=== PATIENT | male | born 1945 | race Caucasian/White ===

== ENCOUNTER 2022-10-03 06:50 | Day surgery (SDC) | payer MEDICARE, OTHER ==
[~2022-10-03] VITALS: Ht 172.7 cm; Wt 86.4 kg
[~2022-10-03 06:50] MED LIST: FLOMAX0.4 MG PO; METAMUCIL660 GM PO; PRILOSEC OTC20 MG PO; TYLENOL EXTRA500 MG PO; VITAMIN C500 M1 PO
[2022-10-03] MEDS ORDERED: LEVOFLOXACIN500 MG PO (15:24)
[2022-10-03] MEDS ORDERED: OXYCODONE HCL5 MG PO (15:29)
[2022-10-03] MEDS ORDERED: FLOMAX0.4 MG PO (15:42)
--- NOTE | 2022-10-04 18:31 | OR ---
[facility] [address] [place], [place] [address] Signed DATE OF OPERATION: 10/03/2022 SURGEON: Ozzie Latham MD PREOPERATIVE DIAGNOSES: 1. Trilobar benign prostatic hyperplasia with active lower urinary tract symptoms. 2. Evidence of active bladder outlet obstruction on recent cystoscopy. POSTOPERATIVE DIAGNOSES: 1. Trilobar benign prostatic hyperplasia with active lower urinary tract symptoms. 2. Evidence of active bladder outlet obstruction on recent cystoscopy. PROCEDURES: 1. Diagnostic cystoscopy. 2. Urethral dilation from 16-Austrian to 32-Austrian using Je sounds. 3. Transurethral resection of the prostate. ANESTHESIA: General. ESTIMATED BLOOD LOSS: 25 mL. COMPLICATIONS: None. SPECIMENS: Fragments of resected prostate sent to pathology for evaluation. DRAINS: A 22-Austrian three-way Miles catheter, connected to continuous bladder irrigation. INDICATIONS FOR PROCEDURE: Mr. Amezcua is a very pleasant 77-year-old gentleman who presented to me initially for evaluation and management of symptoms of prostatism including weak force of stream and nocturia. He subsequently underwent a diagnostic cystoscopy, which revealed moderate to severe lateral lobe hypertrophy with a moderately sized intravesical median lobe. Also, noted was grade 2 bladder wall trabeculation, indicative of active bladder outlet obstruction. After discussing the risks and benefits of TURP including the risk of gross hematuria and that of stress urinary incontinence, the patient verbalized Electronically Signed By: OZZIE LATHAM MD 10/04/22 1831 PATIENT NAME: TITO AMEZCUA OPERATIVE REPORT DATE OF : 47 REPORT #: [id number] PHYSICIAN: OZZIE LATHAM MD PCP: LAZARO LARA MD REPORT IS CONFIDENTIAL AND NOT TO BE RELEASED WITHOUT AUTHORIZATION [facility] [address], [place] [address] Signed understanding of the risks of the procedure and has agreed to proceed. OPERATIVE FINDINGS: 1. On cystoscopy, there was no evidence of any suspicious masses, lesions, or stones. Bilateral ureteral orifices are in their normal anatomic location and effluxing clear urine. They were noted to be relatively far away from the bladder neck. 2. Prior to insertion of the cystoscope the patient's urethral meatus was dilated using [place] sounds from 16-Austrian to 34-Austrian without difficulty. 3. The patient's trilobar prostate was resected using a bipolar device with a 24-Austrian loop. The large median lobe was resected first, followed by the left and then the right lateral lobes of the prostate. The resection was performed down to the level of the verumontanum as to avoid any iatrogenic injury to the external sphincter. 4. At the end of the procedure, a 22-Austrian three-way Miles catheter was inserted into the patient's bladder and connected to continuous bladder irrigation. 5. Due to the shear size of the prostate, the total resection time was 3 hours. DESCRIPTION OF PROCEDURE: After informed consent was obtained, the patient was taken back to the operating room. He was transferred from the [facility] to the operating room table, where general anesthesia was induced. He was placed in the dorsal lithotomy position and his genitalia prepped and draped in a standard sterile fashion. Using a 30-degree lens on a 22.5-Austrian introducer, rigid cystoscope was inserted through his urethra and into his bladder under direct visualization. Panendoscopic views of bladder then obtained. Please see above findings. I then evaluated the prostatic urethra. I removed the scope and then dilated the patient's urethral meatus using [place] sounds from 16-Austrian to 32-Austrian. I was then able to easily pass the 26-Austrian sheath using a visual obturator into the patient's bladder. The visual obturator was then switched out for the resectoscope with a bipolar 24-Austrian loop. I evaluated the location of the bilateral ureteral orifices and again noted that they were not adjacent to the bladder neck. I then initially resected the moderately sized intravesical projecting median lobe. Median lobe resection went without any difficulty. I then focused on the left lateral lobe of the prostate. Both lateral lobes were significantly hypertrophied and were at least 2 to 2.5 cm in length from the bladder neck to the verumontanum. In total, the resection took approximately 3 hours due to the shear size of the prostate. As stated above, the left lateral lobe was resected, followed by the right lateral lobe of the prostate. The resection was performed without disk difficulty and most of the time resection was performed with a 24-Austrian bipolar loop. Near the end of the procedure I moved to the bipolar button for additional hemostasis and to smooth out the TUR defect. All throughout the procedure the patient's bladder was irrigated of prostate chips using a Huey syringe. Once the prostate was resected to my satisfaction, I again confirmed that adequate hemostasis had been achieved. The patient's bladder was evacuated of any Electronically Signed By: OZZIE LATHAM MD 10/04/22 1223 PATIENT NAME: TITO AMEZCUA OPERATIVE REPORT DATE OF : 47 REPORT #: [id number] PHYSICIAN: OZZIE LATHAM MD PCP: LAZARO LARA MD REPORT IS CONFIDENTIAL AND NOT TO BE RELEASED WITHOUT AUTHORIZATION [address], [place] [address] Signed remaining prostate chips using the Huey syringe. I then removed the resectoscope, leaving the sheath in place. I passed a 0.035 Sensor wire through the sheath and into the patient's bladder. The sheath was then removed fully intact. Over the wire, I passed a 22-Austrian three-way Miles catheter over the wire into the patient's bladder. The Sensor wire was removed fully intact and the Miles balloon was filled with 30 mL of sterile water. The catheter irrigated quite easily, which confirmed adequate placement of the catheter into the patient's bladder. The Miles catheter was then connected to continuous bladder irrigation. The procedure was then terminated. The patient tolerated the procedure well without any complication. He will now be transferred to the postanesthesia care unit in stable condition. DISPOSITION: I discussed the details of today's procedure with the patient's , Sepideh, and answered all of her questions. He will stay in the hospital tonight to allow time for his continuous bladder irrigation to be completely weaned to off. The plan is for him to be discharged to home tomorrow morning with a Miles catheter to gravity drainage. He will be sent home on Levaquin 500 mg p.o. daily for a total of 7 days along with oxycodone 5 mg one tablet p.o. q.6 hours p.r.n. pain, dispense #20. He will return to clinic in one week to undergo a voiding trial. He is also already been scheduled to see me in 4-5 weeks for his first postoperative TURP evaluation. MD MOISE Jones/BRODY /[id number] Copies: ~ Electronically Signed By: OZZIE LATHAM MD 10/04/22 1831 PATIENT NAME: TITO AMEZCUA OPERATIVE REPORT DATE OF : 47 REPORT #: [id number] PHYSICIAN: OZZIE LATHAM MD PCP: LAZARO LARA MD REPORT IS CONFIDENTIAL AND NOT TO BE RELEASED WITHOUT AUTHORIZATION
--- NOTE | 2022-10-07 11:49 | PATH ---
[facility] [address] [place], [place] [address] Signed SPECIMEN(S): A PROSTATE CHIPS SPECIMEN SOURCE: A. PROSTATE CHIPS CLINICAL HISTORY: BPH with LUTS. FINAL PATHOLOGIC DIAGNOSIS: Prostate chips, TUR: - Prostatic adenocarcinoma. - [place] score: 3 + 4 = 7/10. - Grade Group: 2. - Percentage of pattern 4: 10%. - Percentage of prostate tissue involved by tumor: Approximately 15%. - Perineural invasion: Not identified. - Cribriform glands: Not identified. COMMENT: As part of [facility]' Quality Improvement Program, this case was reviewed by another member of our pathology staff. Diagnostic notification to the office of Dr. Nava is initiated by Dr. Parker and will be recorded separately. JVR:DS:daniel:[id number] MICROSCOPIC EXAMINATION: Histologic sections of all submitted blocks are examined by light microscopy. These findings, together with the gross examination, support the pathologic diagnosis. Immunohistochemical staining, with appropriately reactive controls, for p63, high molecular weight cytokeratin, and AMACR (TriCAP--prostate cocktail multiplex stain) was performed on block A8. There is a complete absence of basal marker (p63, HMWK) expression combined with cytoplasmic AMACR expression in the focus/foci of interest. These results support the diagnosis of prostatic adenocarcinoma. JVR:em GROSS DESCRIPTION: The specimen, labeled "WH," and designated on the requisition "prostate chips," is received in formalin and consists of multiple fragments of pink-oneil, soft to rubbery tissue (26 g, 2.5 x 5.5 x 3.0 cm PATIENT NAME: TITO AMEZCUA PATHOLOGY DATE OF : 47 REPORT #: [id number] PHYSICIAN: ESAU STEIN PCP: LAZARO NAVA MD REPORT IS CONFIDENTIAL AND NOT TO BE RELEASED WITHOUT AUTHORIZATION [facility] [address] [place], [place] [address] Signed in aggregate). Approximately 57% of the specimen is submitted in cassettes (A1-A10). AC (under the direct supervision of a pathologist) The Gross Description was prepared using a voice recognition system. The report was reviewed for accuracy; however, sound-alike word errors, addition and/or deletions may occur. If there is any question about this report, please contact Client Services. ADDITIONAL NOTES: Immunohistochemical and/or in situ hybridization studies were performed on this case with the appropriate positive controls that react as expected. This test was developed and its performance characteristics determined by [facility]. It has not been cleared or approved by the U.S. Food and Drug Administration. The FDA has determined that such clearance or approval is not necessary. This test is used for clinical purposes. It should not be regarded as investigational or for research. [facility] is certified under the Clinical Laboratory Improvement Amendments of 1988 (CLIA) as qualified to perform high complexity clinical laboratory testing. PERFORMING LABORATORY: The technical component was performed by [facility], [address] [place] [id number] (CLIA# [id number]). The professional interpretation was performed by [facility], [facility], [address] [place] [address] (CLIA#: [id number]). Diagnostician: Sahil Parker MD Pathologist Electronically Signed 10/07/2022 Copies: ~ PATIENT NAME: TITO AMEZCUA PATHOLOGY DATE OF : 47 REPORT #: [id number] PHYSICIAN: ESAU STEIN PCP: LAZARO NAVA MD REPORT IS CONFIDENTIAL AND NOT TO BE RELEASED WITHOUT AUTHORIZATION
== END 2022-10-04 10:35 | disposition home or self-care (01) ==
LOC: DS 06:50 → MS 13:00 → DS 10-04 10:35
PROVIDERS: ATTEND Urology
PROC: 0T7D8ZZ Dilation of Urethra, Via Natural or Artificial Opening Endoscopic (ICD-10-PCS; 2022-10-03)
PROC: 0VT08ZZ Resection of Prostate, Via Natural or Artificial Opening Endoscopic (ICD-10-PCS; principal; 2022-10-03 10:00)
DX: N40.1 Benign prostatic hyperplasia with lower urinary tract symptoms (principal); C61 Malignant neoplasm of prostate; N13.8 Other obstructive and reflux uropathy; R39.12 Poor urinary stream; R35.1 Nocturia; N39.43 Post-void dribbling; K21.9 Gastro-esophageal reflux disease without esophagitis; Z91.018 Allergy to other foods; Z91.048 Other nonmedicinal substance allergy status
CPT/HCPCS: 00912; A9270; C1769; J0690; J0696; J1100; J1160; J1885; J2250; J2704; J2765; J3010; J7030; J7121